=== PATIENT | female | born 1975 | race Caucasian/White ===

== ENCOUNTER 2017-04-14 11:13 | Emergency (ER) | payer MEDICAID, SELFPAY ==
[2017-04-14 11:14] VITALS: BP 151/129; PULSE 110; RESP 18; TEMP 37; O2SAT 95; BMI 43.4
[2017-04-14] MEDS: DiphenhydrAMINE 50 MG/ML Syringe 25 MG IV (12:22)
[2017-04-14] MEDS: Ketorolac 30 MG/ML Syringe IV (12:22)
[2017-04-14] MEDS: proCHLORPERazine 10 MG/2 ML Vial IV (12:22)
[2017-04-14] MEDS: 0.9% Normal Saline 1,000 ML 1000 ML IV (12:22)
[2017-04-14 13:41] LABS: Carboxyhemoglobin Frac (CO) 2.9 % (0.0-1.5)
--- NOTE | 2017-04-14 13:46 | ED.VISSUMM ---
- ER Visit Summary Date of Service: 04/14/17 Chief Complaint: [Headache] History of Present Illness: The patient is a 42 F [presents to the emergency department with a headache for a week and a half. Patient rates her pain an 8 out of 10. Patient describes it as frontal as well as posterior part of her head. Patient states that she has a history of chronic headaches and typically gets them a couple of times a month. Patient typically will take Imitrex or Topamax and Toradol and typically can abort them. Patient was seen by her primary care physician earlier in the week and received Toradol however her headache will not resolve. Patient denies any recent illness. She denies any falls or head injuries. Patient does complain of photophobia as well as nausea and vomiting with a headache. This headache is typical of her migraines and she has had worse headaches in the past.] Physical Examination: [HEENT-PERRLA, EOMI. Cranial nerves II through XII grossly intact. TMs clear. Mucous membranes moist. No adenopathy. Cardiovascular-regular rate and rhythm without murmur or ectopy Lungs-clear to auscultation, chest wall stable without crepitus or subcu emphysema Abdomen-normoactive bowel sounds, soft, nontender, no rebound or rigidity, no peritoneal signs. Neuro exam-figure to nose and heel to vaughan testing within normal limits, negative Romberg, negative pronator drift, fundi benign Extremities-intact ?4, normal range of motion, normal pulses, atraumatic] Test Results: [Carboxyhemoglobin level was 2.9.] Emergency Department Course and Treatment: [Patient received a liter normal same fluid bolus, Compazine 10 mg IV, Toradol 30 mill grams IV, Benadryl 25 mg IV and her headache resolved] Treatment Plan: [] Disposition: [Discharged home in stable condition] Impression: [Migrainous cephalgia-resolved] This note was generated with [employer] dictation software. It may contain incorrect words, spelling, and punctuation that were not noted in review of the chart prior to signing ED Disposition - Plan for ED Patient: Chief Complaint: Headache Referrals: Jose Hector MD [Primary Care Provider] -
--- NOTE | 2017-04-14 13:48 | ED.DEP ---
ED Disposition - Plan for ED Patient: Chief Complaint: Headache Instructions: ED Headache Migraine Prescriptions: Prednisone [Deltasone] 20 mg PO BID #6 tab Referrals: Jose Hector MD [Primary Care Provider] - 3-5 Days
[2017-04-14 14:05] VITALS: BP 139/99; PULSE 100; RESP 16; O2SAT 99
== END 2017-04-14 14:06 | disposition home or self-care (01) ==
PROVIDERS: Emergency Provider Emergency Medicine; Family Provider Family Medicine; PCP Family Medicine
DX: G43.909 Migraine, unspecified, not intractable, without status migrainosus (principal); E11.9 Type 2 diabetes mellitus without complications
CPT/HCPCS: 82375; 99283; J7050; A4216

== ENCOUNTER → 2017-05-19 12:49 | Outpatient (CLI) | payer MEDICAID, SELFPAY ==
--- NOTE | 2017-05-18 11:30 | LES_PTH ---
PATIENT: MELBA ERNANDEZ LOC: [facility] U#:[id number] AGE/SX: 49/F ROOM: RE05/19/[address]: Dr. Watson Max MD : [id number] BED: DIS: SPEC #: [id number] RECD: 05/19/17 13:54 STATUS: SARBJIT FLORESTessie #: [id number] MICHAEL: 05/18/17 11:[address]: Watson Max DEPT: SURGICAL PATHOLOGY RECD BY: Mansoor Morrow ENTERED: 05/19/17 14:46 SP TYPE: Lesion OTHR DR: Dr. Jose Hector MD Tissues: Eyelid, NOS Procedures: Surgery Specimen Level IV HEADER OPERATION: RUL lesion PRE-OP DIAGNOSIS: Pigmented nevus versus papilloma TISSUE SUBMITTED: Right upper eyelid lesion MICROSCOPIC DIAGNOSIS Right upper lid lesion, biopsy: Pigmented benign keratosis with focal seborrheic keratosis like features. Negative for malignancy. SJ:jose 05/20/17 COMMENT Melanocytic nevus is not seen in the submitted specimen. MICROSCOPIC DESCRIPTION Slides are reviewed. GROSS DESCRIPTION Received in fixative is one container labeled with the patient's name and designated right upper lid. The specimen consists of a piece of hough-white skin measuring 0.4 x 0.4 x 0.1 cm. The entire specimen is submitted in one cassette. / LANA:jose 05/19/17 TC:5 CPT: 79471
== END ==
PROVIDERS: Family Provider Family Medicine; PCP Family Medicine; Visit Provider Ophthalmology
DX: L82.1 Other seborrheic keratosis (principal)
CPT/HCPCS: 88305

== ENCOUNTER 2019-06-12 10:57 | Emergency (ER) | payer SELFPAY ==
[2019-06-12 10:58] VITALS: BP 158/91; PULSE 100; RESP 17; TEMP 36.4; O2SAT 99; BMI 44.6
--- NOTE | 2019-06-12 11:18 | CT_ITS ---
STUDY: CT ABDOMEN AND PELVIS WITHOUT CONTRAST REASON FOR EXAM: Female, 44 years old. Bilateral flank and low abdomen pain, hx polycystic ovarian syndrome. RADIATION DOSAGE (If Supplied By Facility): CTDIvol = ( 23.74 ) mGy, DLP = ( 1310.98 ) mGycm TECHNIQUE: Transaxial images were obtained from the dome of the diaphragm to the symphysis pubis without oral contrast, and without intravenous contrast. Sagittal and coronal images were reconstructed. Individualized dose optimization techniques were used for this CT. COMPARISON: None. FINDINGS: The visualized lung bases are unremarkable. The visualized portions of the heart are within normal limits. Normal liver. Normal gallbladder and extrahepatic biliary system. Normal spleen. Normal pancreas. Normal bilateral adrenal glands. Normal right kidney. Normal left kidney. There is a small hiatal hernia. Normal small intestine. There is diffuse thickening of the sigmoid colon with diverticulosis. Colitis should be ruled out. The appendix is visualized and appears normal. Normal abdominal aorta. Normal inferior vena cava. There is borderline retroperitoneal lymphadenopathy with enlarged nodes no greater than 10mm in the short axis diameter. Normal urinary bladder. Normal abdominal wall. Normal osseous structures. CT/Abdomen/Pelvis without Cont IMPRESSION: Possible colitis involving the sigmoid colon with evidence of sigmoid diverticulosis. Electronically Signed: Low Gamez, at 13:10 EDT , Service support ,
--- NOTE | 2019-06-12 11:21 | ED.DCSUM_ITS ---
- ER Visit Summary Date of Service: 06/12/19 Chief Complaint: Back and lower abdominal pain History of Present Illness: The patient is a 44 F who presents with back and lower abdominal pain that has gradually got worse over the past 3 days. Patient states the pain is over her lower back and flank areas. Patient states the pain in her abdomen is over her lower abdomen. Patient denies any nausea, vomiting, diarrhea, melena, or hematochezia. Patient describes the pain is aching. Patient states nothing makes it better or worse. Patient denies any dysuria or hematuria. Patient denies any fevers or chills. Patient denies any abnormal vaginal bleeding or discharge. Patient states she does have a history of PCOS and thinks it could be related to that. Physical Examination: Vital signs are stable. Patient is afebrile. Patient is in no acute distress. Oral mucosa is pink and moist. Neck is supple. Trachea is midline. There is no JVD. Heart was regular rate and rhythm. Lungs are clear and equal bilaterally. Abdomen is soft. Bowel sounds are normal. There is lower abdominal tenderness. There is no rebound or guarding noted. Cranial nerves II through XII are intact. There are no focal motor or sensory deficits noted. Test Results: CBC was within normal limits. Comprehensive metabolic profile shows slightly elevated glucose of 187. Urinalysis does not show any evidence of urinary tract infection. hCG was negative. CT scan of the abdomen and pelvis was obtained. There is colitis of the sigmoid colon but there is no evidence of diverticulosis or diverticulitis. Emergency Department Course and Treatment: Patient was given IV fluids. Patient was given a dose of [place] here. Patient was started on Cipro and Flagyl here. Patient was given prescriptions for Cipro and Flagyl. Patient was instructed to follow-up with her primary care physician in 5 to 7 days. Patient understood and was agreeable with the plan. All questions were answered. Disposition: Discharge home Impression: Colitis This note was generated with [employer] dictation software. It may contain incorrect words, spelling, and punctuation that were not noted in review of the chart prior to signing ED Disposition - Plan for ED Patient: Disposition: Home or Assisted Living Diagnosis: Colitis Instructions: ABDOMINAL PAIN, Unknown Cause, (Female) Prescriptions: Ciprofloxacin [Cipro] 500 mg PO BID #20 tab Prescription Printed metroNIDAZOLE [Flagyl] 500 mg PO Q6H #40 tab Prescription Printed Referrals: Jose Hector MD [Primary Care Provider] - 5-7 Days Additional Instructions: Your CT scan shows evidence of colitis. Take the antibiotics as prescribed until gone. Follow-up with your primary care physician in 5 to 7 days.
[2019-06-12 11:43] LABS: Absolute Neutrophil Count 5.2 X10^3/uL (2.0-7.7); Basophil# 0.05 X10^3/uL; Basophil% 0.6 % (0-1); Eosinophil# 0.32 X10^3/uL; Eosinophils% 3.9 % (0-5); Hematocrit 44.8 % (37-47); Hemoglobin 14.7 g/dL (12.0-15.0); Lymphocyte % 24.4 % (19-41); Mean Corp Hgb Conc 32.8 g/dL (32-36); Mean Corpuscular Hgb 27.5 pg (27.0-32.0); Mean Corpuscular Volume 83.9 fL (81-99); Mean Platelet Vol. 10.1 fl (6.2-12.0); Monocyte# 0.58 X10^3/uL; Monocyte% 7.1 % (0-10); NRBC Flagged by Analyzer 0 % (0-5); Neutrophil # 5.18 X10^3/uL (2.7-7.7); Neutrophil % 63.4 % (47-70); Platelet Count 352 K/mm3 (150-450); RBC Distribution Width CV 13.9 % (11.6-14.6); RBC Distribution Width SD 42.5 fl (35.1-43.9); Red Blood Count 5.34 M/mm3 (4.2-5.4); White Blood Count 8.2 K/mm3 (4.4-11.0)
[2019-06-12] MEDS: 0.9% Normal Saline 1,000 ML 1000 ML IV (11:43)
[2019-06-12 11:51] LABS: Mucous, Urine 0 SEEN /hpf (<or=2+); White Blood Cells 0 SEEN /hpf (0-5)
[2019-06-12 11:54] LABS: Color, Urine Yellow (Yellow); Glucose, Dipstick Normal (Normal); Ketone-Dipstick 5 mg/dl (Negative); Leukocyte Esterase-Dipstick Negative /ul (Negative); Nitrite-Dipstick Negative (Negative); Occult Blood-Urine 10 /ul (Negative); Protein-Dipstick 30 mg/dl (Negative); Urine Bilirubin Dipstick Negative (Negative); Urine Clarity Sl. Cloudy (Clear); Urine Urobilinogen Normal (Normal)
[2019-06-12 11:58] LABS: AST(SGOT) 24 U/L (15-37); Alanine Aminotransfer ALT/SGPT 39 U/L (13-56); Albumin, Serum 3.7 g/dL (3.2-5.0); Alkaline Phosphatase 73 U/L (45-117); Anion Gap 5 (5-15); BUN 9 mg/dL (7-18); BUN/Creat Ratio 9.5 RATIO (10-20); Calcium,Total 8.7 mg/dL (8.5-10.1); Chloride 110 mmol/L (98-107); Creatinine, Serum 0.95 mg/dL (0.55-1.02); EST Glomerular Filtration Rate 68 mL/min (>60); Est Glom Filt Rate - Afr Amer 82 mL/min (>60); Estimated Creatinine Clearance 65.26 ml/min; Globulin 3.8 g/dL (2.2-4.2); Glucose 187 mg/dL (74-106); Potassium 4.1 mmol/L (3.5-5.1); Protein, Total 7.5 g/dL (6.4-8.2); Sodium Level 141 mmol/L (136-145)
[2019-06-12 12:13] LABS: Bacteria 2+ /hpf (None Seen); Red Blood Cells-Urine 0-5 SEEN /hpf (0-5); Squamous Epithelial Cells - UA 0-5 SEEN /hpf (5-10)
[2019-06-12 12:32] LABS: hCG Titer Quant., Serum < 1 mIU/mL (1-3)
[2019-06-12 13:57] VITALS: BP 148/98; PULSE 74; RESP 16; O2SAT 98
[2019-06-12] MEDS: Ciprofloxacin 500 MG Tablet PO (14:46)
[2019-06-12] MEDS: HYDROcodone Bitartrate/Apap 5/325 Tablet PO (14:46)
[2019-06-12 14:47] VITALS: BP 121/79; PULSE 80; O2SAT 99
[2019-06-12] MEDS: metroNIDAZOLE 500 MG Tablet PO (14:47)
== END 2019-06-12 14:52 | disposition home or self-care (01) ==
PROVIDERS: Emergency Provider Emergency Medicine; PCP Family Medicine
DX: K52.9 Noninfective gastroenteritis and colitis, unspecified (principal); E66.9 Obesity, unspecified; E28.2 Polycystic ovarian syndrome; G43.909 Migraine, unspecified, not intractable, without status migrainosus; Z79.899 Other long term (current) drug therapy
CPT/HCPCS: 74176; 80053; 81001; 84702; 85025; 96360; 99284; J7030

== ENCOUNTER 2020-09-06 16:22 | Emergency (ER) | payer SELFPAY ==
[2020-09-06 16:23] VITALS: BP 148/101; PULSE 78; RESP 16; TEMP 36.6; O2SAT 97; BMI 43.6
--- NOTE | 2020-09-06 17:14 | EDS_ITS ---
HPI History of Present Illness Chief Complaint: Headache Informant: patient Onset/Context/Timing Onset: Days Context: Gradual Timing: Continuous Quality -Headache: Positive for Similar Prior Headaches and Throbbing Current Severity: Moderate Maximum Severity: Moderate Associated Symptoms/Injury Associated Symptoms: Positive for Nausea, Vomiting and Photophobia; Negative for Fever, Sore Throat, Sinus Pressure, Numbness, Tingling and Blurred Vision Injury - YAP: Negative for Direct Trauma, Fall and Assault Narrative Narrative: 45-year-old female history of migraines. States this is her typical migraine headache gradual onset on Wednesday. She has tried her home medication such as Imitrex and nausea medications but she says she keeps throwing them up. She denies any head trauma. No fever. She is on no blood thinners. She says when she gets these and cannot control at home she comes in and gets the migraine headache IV cocktail medications. Prior similar symptoms: Yes Recent Illness/Hospitalization: No PFSH PFSH Medical History (Updated 09/06/20 @ 17:35 by Rosie Reynoso) Migraine Home Medications ondansetron 4 mg PO Q8H PRN PRN #10 tab 09/24/15 [Rx Last Taken Unknown] prednisone 20 mg PO BID #6 tab 04/14/17 [Rx Last Taken Unknown] rizatriptan 10 mg PO DAILY 04/14/17 [History Last Taken Unknown] topiramate 100 mg PO DAILY 04/14/17 [History Last Taken Unknown] tramadol 50 mg PO DAILY 04/14/17 [History Last Taken Unknown] ciprofloxacin HCl 500 mg PO BID #20 tab 06/12/19 [Rx Last Taken Unknown] metronidazole 500 mg PO Q6H #40 tab 06/12/19 [Rx Last Taken Unknown] Allergy/AdvReac Type Severity Reaction Status Date / Time piperacillin sodium Allergy Vomiting Verified 09/06/20 16:23 [From Zosyn] tazobactam sodium Allergy Vomiting Verified 09/06/20 16:23 [From Zosyn] Social History Smoking Status: Former smoker ROS ROS ED ROS Narrative Migraine headache with nausea and vomiting. Review of Systems ROS Unobtainable: Denies due to encephalopathy Constitutional Constitutional ED: Denies chills or fever(s) Eyes Eyes: Denies change in vision ENT ENT ED: Denies ear pain or sore throat Cardiovascular Cardiovascular: Denies chest pain Respiratory/Chest Respiratory/Chest: Denies dyspnea Gastrointestinal Gastrointestinal: Reports nausea and vomiting; Denies abdominal pain Genitourinary Genitourinary ED: Denies dysuria Musculoskeletal Musculoskeletal: Denies myalgias Integumentary Denies rash Neurologic Neurologic: Reports headache(s) Psychiatric Psychiatric: Denies depression Endocrine Endocrinology: Denies polyuria Hematologic/Lymphatic Hematologic/Lymphatic: Denies easy bruising Allergic/Immunologic Allergic/Immunologic ED: Denies urticaria EXAM Physical Exam Narrative Exam Narrative: Middle-aged female lying in bed in the position in darkened room. Vital signs are stable afebrile. Does not look septic or toxic. H EENT exam normal. Pupils are reactive light motions are intact. She is photophobic. Normal speech. Neck nontender no meningismus. Lungs are clear. Heart regular rhythm. Abdomen soft nontender. Moving all 4 extremities. Neurovascular intact. 5-5 talent assistant strength bilaterally. Dorsi plantar flexion intact. Neurologic exam normal. NIH 0. Const Vital Signs: 09/06/20 16:23 Temperature 98 F Temperature Source Temporal Pulse Rate 78 Respiratory Rate 16 Blood Pressure 148/101 H Blood Pressure Mean 116 Pulse Ox 97 Oxygen Delivery Method Room Air Positive well nourished and well developed General Appearance ED: well developed HEENT Reports normocephalic and moist mucous membranes atraumatic; Negative for trauma or tenderness Eyes PERRL and EOMs intact bilaterally Neck no lymphadenopathy, supple, no meningeal signs and no JVD General: Negative for tenderness Resp normal respiratory effort and clear to auscultation bilaterally Auscultation: Negative for rales, rhonchi or wheezes Cardio regular rate, regular rhythm, S1 normal heart sound, S2 normal heart sound and no murmurs GI non-tender and non-distended Auscultation: normoactive bowel sounds Palpation: soft; Negative for tender or guarding Back/Spine no CVA tenderness Extremity normal to inspection and full ROM General Extremety ED: Negative for edema or tenderness General Extremity: Negative for edema Neuro oriented x3, CN's II-XII intact bilaterally and no sensory deficits noted Sensorium / Orientation: awake, alert, oriented to person, oriented to place, oriented to time and orientation impaired; Negative for lethargic or stuporous Motor Exam: strength 5/5 throughout Psych mental status grossly normal Skin Lesions: no lesions Rashes: no rashes MDM MDM MDM Narrative Medical decision making narrative: Middle-aged female history of migraines examined history are consistent with a migraine headache. She will be treated with IV fluids IV Toradol, Reglan and Benadryl and reassess. Her neurologic exam is normal. Repeat exam patient is doing well at 6:55 PM. Headache is resolved. Neurologic exam remains normal. She is comfortable being discharged home. Discharge Plan Triage Chief Complaint: Headache ED Provider: Damien Stewart Dx/Rx/DC Orders Clinical Impression: Headache, migraine Instructions: ED, Migraine (Classical) Prescriptions: No Action ondansetron 4 MG tablet 4 mg PO Q8H PRN PRN (Reason: Nausea) Qty: 10 RF: 0 rizatriptan 10 tablet 10 mg PO DAILY RF: 0 tramadol 50 MG tablet 50 mg PO DAILY RF: 0 topiramate 100 tablet 100 mg PO DAILY RF: 0 prednisone 20 MG tablet 20 mg PO BID Qty: 6 RF: 0 metronidazole 500 MG tablet 500 mg PO Q6H Qty: 40 RF: 0 ciprofloxacin HCl 500 MG tablet 500 mg PO BID Qty: 20 RF: 0 Primary Care Provider: Jose Hector Referrals: Jose Hector MD [Primary Care Provider] - 3-5 Days if not improving Activity Restrictions/Additional Instructions: Plenty fluids and rest. Use your home migraine headache medications as needed. Return if you are feeling worse. Disposition Disposition: Home, self care
[2020-09-06] MEDS: Ketorolac 30 MG/ML Syringe IV (17:39)
[2020-09-06] MEDS: Metoclopramide 10 MG/2 ML Vial IV (17:39)
[2020-09-06] MEDS: DiphenhydrAMINE 50 MG/ML Syringe 25 MG IV (17:39)
[2020-09-06] MEDS: 0.9% Normal Saline 1,000 ML 1000 ML IV (17:39)
[2020-09-06 19:02] VITALS: BP 146/111; PULSE 66; RESP 16; O2SAT 99
== END 2020-09-06 19:06 | disposition home or self-care (01) ==
PROVIDERS: Emergency Provider Emergency Medicine; PCP Family Medicine
DX: G43.909 Migraine, unspecified, not intractable, without status migrainosus (principal); Z87.891 Personal history of nicotine dependence
CPT/HCPCS: 96361; 96374; 96375; 99283; J7030; A4216

== ENCOUNTER 2021-11-28 13:07 | Emergency (ER) | payer SELFPAY ==
[2021-11-28 13:08] VITALS: BP 140/95; PULSE 69; RESP 18; TEMP 37.1; O2SAT 100; BMI 39.3
--- NOTE | 2021-11-28 13:51 | EDS_ITS ---
HPI History of Present Illness Chief Complaint: Headache Narrative Narrative: 46-year-old female with history of migraine headache presenting with migraine. She states there is no atypical features about it. She has had this for 3 days. She admits to phonophobia and photophobia. Patient does not have fever or neck pain. She denies cough, chills, fever, shortness of breath. No head trauma. [facility] Medical History Migraine Home Medications ondansetron 4 mg disintegrating tablet 4 mg PO Q8H PRN PRN Nausea ##10 09/24/15 [Rx Last Taken Unknown] prednisone 20 mg tablet 20 mg PO BID #6 tabs 04/14/17 [Rx Last Taken Unknown] rizatriptan 10 mg tablet 10 mg PO DAILY 04/14/17 [History Last Taken Unknown] topiramate 100 mg tablet 100 mg PO DAILY 04/14/17 [History Last Taken Unknown] tramadol 50 mg tablet 50 mg PO DAILY 04/14/17 [History Last Taken Unknown] ciprofloxacin HCl 500 mg tablet 500 mg PO BID #20 tabs 06/12/19 [Rx Last Taken Unknown] metronidazole 500 mg tablet 500 mg PO Q6H #40 tabs 06/12/19 [Rx Last Taken Unknown] Allergy/AdvReac Type Severity Reaction Status Date / Time piperacillin sodium Allergy Vomiting Verified 11/28/21 13:10 [From Zosyn] tazobactam sodium Allergy Vomiting Verified 11/28/21 13:10 [From Zosyn] Surgical History History of tonsillectomy Social History Smoking Status: Former smoker ROS ROS ED Constitutional Constitutional ED: Denies chills or fever(s) Eyes Eyes: Denies change in vision or diplopia ENT ENT ED: Denies rhinorrhea or sore throat Cardiovascular Cardiovascular: Denies chest pain or palpitations Respiratory/Chest Respiratory/Chest: Denies cough or dyspnea Gastrointestinal Gastrointestinal: Denies abdominal pain or constipation Genitourinary Genitourinary ED: Denies dysuria or hematuria Musculoskeletal Musculoskeletal: Denies arthralgias or back pain Integumentary Denies abscess Neurologic Neurologic: Reports headache(s); Denies paresthesias or weakness Psychiatric Psychiatric: Denies anxiety or depression EXAM Physical Exam Const Vital Signs: 11/28/21 13:08 11/28/21 15:15 Temperature 98.7 F Temperature Source Temporal Pulse Rate 69 69 Respiratory Rate 18 16 Blood Pressure 140/95 H 154/88 H Blood Pressure Mean 110 110 Pulse Ox 100 99 Oxygen Delivery Method Room Air Room Air Positive well nourished General Appearance ED: NAD; Negative for pallor HEENT Reports normocephalic and moist mucous membranes atraumatic Eyes PERRL and EOMs intact bilaterally Resp normal respiratory effort and clear to auscultation bilaterally Auscultation: Negative for rales, rhonchi or wheezes Cardio regular rate and regular rhythm GI non-tender Neuro oriented x3 and CN's II-XII intact bilaterally Psych mental status grossly normal Skin General Skin Exam: Negative for jaundice or pallor MDM MDM MDM Narrative Medical decision making narrative: Patient presenting with headache. Is typical of her migraine headaches. Her exam is otherwise unremarkable. Patient does not need head CT or blood work. Patient was treated with Reglan and Benadryl as well as Toradol. On reevaluation at 3:20 PM patient was sleeping. She states her headache is improved. She request sumatriptan for discharge and this was provided. Impression: 1. Headache Lab Data Attestation: I reviewed the patient's lab results. Discharge Plan Triage Chief Complaint: Headache ED Provider: Barry Franklin Dx/Rx/DC Orders Instructions: ED Headache Unspecified Prescriptions: No Action ondansetron 4 MG tablet 4 mg PO Q8H PRN PRN (Reason: Nausea) Qty: 10 0RF rizatriptan 10 tablet 10 mg PO DAILY Label Comments: tramadol 50 MG tablet 50 mg PO DAILY Label Comments: TAKE 1 TABLET EVERY 4 HOURS NEEDED FOR PAIN FOR UP TO 7 DAYS topiramate 100 tablet 100 mg PO DAILY Label Comments: prednisone 20 MG tablet 20 mg PO BID Qty: 6 0RF Rx Instructions: With food metronidazole 500 MG tablet 500 mg PO Q6H Qty: 40 0RF ciprofloxacin HCl 500 MG tablet 500 mg PO BID Qty: 20 0RF Primary Care Provider: Jose Hector Referrals: Jose Hector MD [Primary Care Provider] - Disposition Disposition: Home, Self Care
[2021-11-28] MEDS: 0.9% Normal Saline 1,000 ML 999 ML IV (14:00)
[2021-11-28] MEDS: DiphenhydrAMINE 50 MG/ML Syringe 25 MG IV (14:01)
[2021-11-28] MEDS: Ketorolac 15 MG/ML Vial IV (14:01)
[2021-11-28] MEDS: proCHLORPERazine 10 MG/2 ML Vial IV (14:01)
[2021-11-28 15:15] VITALS: BP 154/88; PULSE 69; RESP 16; O2SAT 99
[2021-11-28] MEDS: SUMAtriptan 6 MG/0.5 ML Vial SC (15:36)
== END 2021-11-28 15:59 | disposition home or self-care (01) ==
PROVIDERS: Emergency Provider Student in an Organized Health Care Education/Training Program; PCP Family Medicine; Visit Provider Student in an Organized Health Care Education/Training Program
DX: R51.9 Headache, unspecified (principal); Z87.891 Personal history of nicotine dependence
CPT/HCPCS: 96361; 96372; 96374; 96375; 99283; A4216; J3030

== ENCOUNTER → 2023-02-25 | Outpatient (CLI) | payer SELFPAY ==
[2023-02-25 09:16] LABS: Erythrocyte Sedimentation Rate 13 mm/hr (0-30)
[2023-02-25 09:20] LABS: CRP 8.71 mg/L (0.0-3.0); Lipase 38 U/L (13-75)
== END | disposition home or self-care (01) ==
PROVIDERS: PCP Family Medicine; Referring Provider Nurse Practitioner Primary Care; Visit Provider Nurse Practitioner Primary Care
DX: R10.30 Lower abdominal pain, unspecified (principal)
CPT/HCPCS: 83690; 85652; 86140

== ENCOUNTER 2023-10-29 12:59 | Emergency (ER) | payer SELFPAY ==
[2023-10-29 12:59] VITALS: BP 175/100; PULSE 84; RESP 14; TEMP 36.1; O2SAT 99; BMI 41.0
[2023-10-29 14:59] VITALS: BP 138/102; PULSE 74; RESP 18
[2023-10-29] MEDS: 0.9% Normal Saline (1000mL) 1,000 ML 999 ML IV (15:20)
[2023-10-29] MEDS: Ketorolac 15 MG/ML Vial IV (15:20)
[2023-10-29] MEDS: Metoclopramide 10 MG/2 ML Vial IV (15:21)
[2023-10-29] MEDS: DiphenhydrAMINE 50 MG/ML Syringe 25 MG IV (15:21)
--- NOTE | 2023-10-29 15:43 | EX.ED.VIS.HA ---
HPI History of Present Illness Chief Complaint: Headache Detail of Chief Complaint: History of migraine headaches on [place] Informant: patient Onset/Context/Timing Onset: Days Context: Gradual and Exertional Timing: Continuous Quality -Headache: Positive for Similar Prior Headaches and Throbbing (Unilateral) Current Severity: Severe Maximum Severity: Severe Worsened by: Light and sound Relieved by: Nothing Associated Symptoms/Injury Associated Symptoms: Positive for Nausea, Preceding Aura, Blurred Vision and Photophobia; Negative for Fever, Sore Throat, Sinus Pressure, Numbness, Tingling, Visual Changes or Visual Loss Injury - YAP: Negative for Direct Trauma Narrative Narrative: Patient is a 48-year-old woman. She presents because her migraine medicines have not alleviated her headache. She presents with severe unilateral throbbing headache similar to prior. This is a associated with photophobia, nausea, bilateral blurred vision. It is not unusual for her to have visual changes. She denies fever, chills night sweats. Denies neck pain or neck stiffness. She denies paresthesia, anesthesia motors. Denies trouble with balance or coordination. She denies history of hypertension. She denies trouble with speech or swallowing. She denies cardiac or respiratory symptoms. Her only GI symptom is nausea. She denies urologic symptoms. Prior similar symptoms: Yes Recent Illness/Hospitalization: No PFSH [facility] Medical History Migraine Home Medications ?Medication ?Instructions ?Recorded ?Last Taken ?Type ondansetron 4 mg disintegrating 4 mg PO Q8H PRN PRN Nausea #10 tabs 09/24/15 Unknown Rx tablet prednisone 20 mg tablet 20 mg PO BID #6 tabs 04/14/17 Unknown Rx rizatriptan 10 mg tablet 10 mg PO DAILY 04/14/17 Unknown History topiramate 100 mg tablet 100 mg PO DAILY 04/14/17 Unknown History tramadol 50 mg tablet 50 mg PO DAILY 04/14/17 Unknown History ciprofloxacin HCl 500 mg tablet 500 mg PO BID #20 tabs 06/12/19 Unknown Rx metronidazole 500 mg tablet 500 mg PO Q6H #40 tabs 06/12/19 Unknown Rx Allergy/AdvReac Type Severity Reaction Status Date / Time piperacillin sodium (From Allergy Vomiting Verified 11/28/21 13:10 Zosyn) tazobactam sodium (From Allergy Vomiting Verified 11/28/21 13:10 Zosyn) Surgical History History of tonsillectomy Social History Smoking Status: Former smoker ROS ROS ED Constitutional Constitutional ED: Denies chills, fever(s), subjective or sweats Eyes Eyes: Reports blurry vision bilateral; Denies change in vision or diplopia ENT ENT ED: Denies ear pain, rhinorrhea or sore throat Cardiovascular Cardiovascular: Denies chest pain or palpitations Respiratory/Chest Respiratory/Chest: Denies cough, dyspnea or dyspnea on exertion Gastrointestinal Gastrointestinal: Reports nausea; Denies abdominal pain, constipation, diarrhea, melena or vomiting Genitourinary Genitourinary ED: Denies dysuria, hematuria or urinary frequency Musculoskeletal Musculoskeletal: Denies arthralgias, back pain, myalgias or neck pain Integumentary Denies rash Neurologic Neurologic: Reports headache(s); Denies paresthesias or weakness Psychiatric Psychiatric: Denies anxiety Endocrine Endocrinology: Denies polydipsia, polyphagia or polyuria Hematologic/Lymphatic Hematologic/Lymphatic: Denies easy bleeding or easy bruising EXAM Physical Exam Const Vital Signs: 10/29/23 12:59 10/29/23 14:59 10/29/23 16:00 Temperature 97 F L Temperature Source Temporal Pulse Rate 84 74 68 Respiratory Rate 14 18 18 Blood Pressure 175/100 H 138/102 H 155/97 H Blood Pressure Mean 125 114 116 Pulse Ox 99 97 Oxygen Delivery Method Room Air Positive well nourished and well developed Constitutional Narrative: Patient is in the room lights out with a wet rag over her forehead and eyes. She appears uncomfortable. Blood pressure was initially elevated. General Appearance ED: well developed; Negative for NAD HEENT Reports normocephalic, TM's clear and moist mucous membranes HEENT Narrative: Uvula is midline. No deviation tongue or protrusion. atraumatic; Negative for trauma, tenderness, temporal artery tenderness or vesicular rash Face and Sinus: Negative for sinus tenderness Tympanic Membrane ED: Yes TM's clear Eyes PERRL and EOMs intact bilaterally Eyes Narrative: There is no APD. There is some light sensitivity. Funduscopic exam was limited. I do not see obvious papilledema. General Eye ED: Negative for pale conjunctiva or scleral icterus Neck no lymphadenopathy, supple, no meningeal signs and no JVD Resp normal respiratory effort and clear to auscultation bilaterally Cardio regular rate, regular rhythm, S1 normal heart sound, S2 normal heart sound and no murmurs GI non-tender Auscultation: normoactive bowel sounds Palpation: soft Extremity normal to inspection, full ROM and normal capillary refill Neuro oriented x3, CN's II-XII intact bilaterally and no sensory deficits noted Neuro Narrative: There is no dysmetria. There is no clonus or Babinski sign noted. [place] Coma Scale: document GCS findings Spontaneous Obeys Commands Oriented 15 Coordination / Balance: [id number] test normal Speech: speech normal Motor Exam: strength 5/5 throughout Psych Psych Narrative: When I went in to evaluate patient was noted the patient did not receive her meds. Patient not receive her meds because my orders did not go through. Process the orders. Attitude: agitated Skin General Skin Exam: elasticity normal Lesions: no lesions Rashes: no rashes MDM MDM MDM Narrative Medical decision making narrative: Since this is not a thunderclap acute headache doubt subarachnoid hemorrhage. Since patient's had similar headaches due to migraines suspect this is intractable migraine with status. If she does not get improvement we will scan to evaluate for intracranial pathology i.e. intracranial bleed, atraumatic subarachnoid hemorrhage. History and physical is not consistent with stroke. Treatment and Re-Evaluation Narrative: Patient was reassessed at 1632. Patient was informed the reason that she did not get her medicine is that the orders were processed when I thought they were which led to delay. She excepted my explanation. She feels markedly better. She is laughing. She would like to go home. Discharge Plan Triage Chief Complaint: Headache ED Provider: Ernesto Roy Dx/Rx/DC Orders Clinical Impression: Intractable chronic migraine without aura and with status migrainosus, Elevated blood-pressure reading without diagnosis of hypertension Instructions: ED, Migraine (Classical) Prescriptions: No Action ondansetron 4 MG tablet 4 mg PO Q8H PRN PRN (Reason: Nausea) Qty: 10 0RF rizatriptan 10 tablet 10 mg PO DAILY Patient Comments: tramadol 50 MG tablet 50 mg PO DAILY Patient Comments: TAKE 1 TABLET EVERY 4 HOURS NEEDED FOR PAIN FOR UP TO 7 DAYS topiramate 100 tablet 100 mg PO DAILY Patient Comments: prednisone 20 MG tablet 20 mg PO BID Qty: 6 0RF Rx Instructions: With food metronidazole 500 MG tablet 500 mg PO Q6H Qty: 40 0RF ciprofloxacin HCl 500 MG tablet 500 mg PO BID Qty: 20 0RF Primary Care Provider: Jose Hector Referrals: Jose Hector MD [Primary Care Provider] - As Needed Activity Restrictions/Additional Instructions: You should have your blood pressure reassessed in 1 to 2 weeks. Print Language: Yakut Disposition Disposition: Home, Self Care
[2023-10-29 16:00] VITALS: BP 155/97; PULSE 68; RESP 18; O2SAT 97
[2023-10-29 16:40] VITALS: BP 115/78; PULSE 72; RESP 18; TEMP 36.6; O2SAT 95
== END 2023-10-29 16:41 | disposition home or self-care (01) ==
PROVIDERS: Emergency Provider Emergency Medicine; PCP Family Medicine; Visit Provider Emergency Medicine
DX: G43.711 Chronic migraine without aura, intractable, with status migrainosus (principal); R03.0 Elevated blood-pressure reading, without diagnosis of hypertension; Z87.891 Personal history of nicotine dependence
CPT/HCPCS: 96361; 96374; 96375; 99284; A4216